=== PATIENT | male | born 1980 | race Hispanic/Latino ===

== ENCOUNTER 2017-06-10 00:48 | Emergency (ER) | payer OTHER ==
[2017-06-10] MEDS ORDERED: Ibuprofen 800 MG TAB ONE (01:11)
== END 2017-06-10 01:28 | disposition home or self-care (01) ==
LOC: BURERS 00:48
DX: S39.011A Strain of muscle, fascia and tendon of abdomen, initial encounter (principal); F17.210 Nicotine dependence, cigarettes, uncomplicated; X50.0XXA Overexertion from strenuous movement or load, initial encounter; Y99.0 Civilian activity done for income or pay
CPT/HCPCS: 99283